=== PATIENT | female | born 1995 | race Caucasian/White ===

== ENCOUNTER 2018-08-21 16:32 | Emergency (ER) | payer OTHER ==
[2018-08-21] MEDS ORDERED: Diphtheria,Pertussis(Acell),Tetanus Vaccine 0.5 ML Syringe IM ONE (16:36)
--- NOTE | 2018-08-21 17:02 | EDM.PDOC ---
ED HPI GENERAL MEDICAL PROBLEM - General Chief Complaint: Laceration Stated Complaint: LACERATION ON FINGER Time Seen by Provider: 08/21/18 16:33 Source of Information: Reports: Patient History Limitations: Reports: No Limitations - History of Present Illness INITIAL COMMENTS - FREE TEXT/NARRATIVE: HISTORY AND PHYSICAL: History of present illness: Patient is a 23-year-old female who presents to the emergency room with complaints of a laceration to her right index finger. She states she was using a bread knife when it slipped resulting in this laceration. Her tetanus has been updated within the last 5 years. Review of systems: As per history of present illness and below otherwise all systems reviewed and negative. Past medical history: As per history of present illness and as reviewed below otherwise noncontributory. Surgical history: As per history of present illness and as reviewed below otherwise noncontributory. Social history: See social history for further information Family history: As per history of present illness and as reviewed below otherwise noncontributory. Physical exam: General: Well-developed and well-nourished 23-year-old female. Alert and oriented. Nontoxic appearing and in no acute distress. HEENT: Atraumatic, normocephalic, pupils equal and reactive bilaterally, negative for conjunctival pallor or scleral icterus, mucous membranes moist, TMs normal bilaterally, throat clear, neck supple, nontender, trachea midline. No drooling or trismus noted. No meningeal signs. No hot potato voice noted. Lungs: Clear to auscultation, breath sounds equal bilaterally, chest nontender. Heart: S1S2, regular rate and rhythm without overt murmur Abdomen: Soft, nondistended, nontender. Pelvis: Stable nontender. Genitourinary: Deferred. Rectal: Deferred. Skin: 1 cm laceration to the palmar surface of the right distal index finger. This does not involve the nailbed. Otherwise skin is intact, warm, dry. No lesions or rashes noted. Extremities: See skin for details. There is no tendon injury association with this laceration. negative for cords or calf pain. Neurovascular unremarkable. Neuro: Awake, alert, oriented. Cranial nerves II through XII unremarkable. Cerebellum unremarkable. Motor and sensory unremarkable throughout. Exam nonfocal. Notes: Area was cleansed with chlorhexidine. 1% lidocaine was used to anesthetize the area. 5-0 chromic, #3 interrupted sutures placed using sterile technique. Patient tolerated well. Nonstick dressing applied. Supportive care measures were reviewed and discussed. She voices understanding and is agreeable to plan of care. Denies any further questions or concerns at this time. Diagnostics: None Therapeutics: Lidocaine, wound care, nonstick bulky dressing Prescription: None Impression: Laceration Plan: 1. Keep the area clean and dry. Continue to monitor for signs of infection. Sutures to be removed in 7-10 days. 2. Tylenol and/or ibuprofen as needed for pain management. 3. Please follow-up with your primary care provider in the next 1-2 days. Return to the ED as needed and as discussed. Definitive disposition and diagnosis as appropriate pending reevaluation and review of above. - Related Data Allergies Allergy/AdvReac Type Severity Reaction Status Date / Time No Known Allergies Allergy Verified 08/21/18 16:43 Home Meds: Home Meds . 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 Psychiatric History: Reports: Anxiety, Depression - Infectious Disease History Infectious Disease History: Reports: None - Past Surgical History Other Female Surgeries/Procedures: One sided falopian tube removal Social & Family History - Family History Family Medical History: Noncontributory - Tobacco Use Smoking Status *Q: Current Some Day Smoker Years of Tobacco use: 1 Packs/Tins Daily: 0.1 - Recreational Drug Use Recreational Drug Use: No - Living Situation & Occupation Living situation: Reports: Single Occupation: Employed ED ROS GENERAL - Review of Systems Review Of Systems: ROS reveals no pertinent complaints other than HPI. ED EXAM, SKIN/RASH Exam: See Below (See dictation) ED SKIN PROCEDURES - Laceration/Wound Repair right index finger Lac/Wound length In cm: 1 Appearance: Subcutaneous, Linear, Clean Distal NVT: Neuro & Vascular Intact, No Tendon Injury Anesthetic Type: Local Local Anesthesia - Lidocaine (Xylocaine): 1% Plain Local Anesthetic Volume: 1cc Skin Prep: Chlorhexidine (Hibiciens), Saline Saline Irrigation (cc's): 25 Exploration/Debridement/Repair: Wound Explored, No Foreign Material Found Closed with: Sutures Suture Size: other (5-0) Suture Type: Interrupted, Simple Repaired with: Chromic Sterile Dressing Applied: Provider Tetanus Status Addressed: Yes Complications: No Course - Vital Signs Last Recorded V/S: Last Vital Signs Temp 96.9 F 08/21/18 16:44 Pulse 75 08/21/18 17:14 Resp 18 08/21/18 17:14 BP 122/59 L 08/21/18 16:44 Pulse Ox 98 08/21/18 17:14 - Orders/Labs/Meds Orders: Active Orders 24 hr Category Date Time Status Vaccines to be Administered [RC] PER UNIT ROUTINE Care 08/21/18 16:36 Active Meds: Medications Discontinued Medications Generic Name Dose Route Start Last Admin Trade Name Freq PRN Reason Stop Dose Admin Diphtheria/Tetanus/Acell Pertussis 0.5 ml 08/21/18 16:36 08/21/18 16:50 Adacel IM 08/21/18 16:37 Not Given .ONCE ONE Lidocaine HCl 5 ml 08/21/18 16:36 08/21/18 16:50 Xylocaine-Mpf 1% INJECT 08/21/18 16:37 5 ml ONETIME ONE Administration Lidocaine HCl 5 ml 08/21/18 16:49 08/21/18 16:50 Xylocaine-Mpf 1% INJECT 08/21/18 16:50 Not Given ONETIME ONE Departure - Departure Time of Disposition: 17:01 Disposition: Home, Self-Care 01 Clinical Impression: Laceration - Discharge Information Instructions: Laceration Care, Adult, [id number] Referrals: PCP,None [Primary Care Provider] - Forms: ED Department Discharge Additional Instructions: The following information is given to patients seen in the emergency department who are being discharged to home. This information is to outline your options for follow-up care. We provide all patients seen in our emergency department with a follow-up referral. The need for follow-up, as well as the timing and circumstances, are variable depending upon the specifics of your emergency department visit. If you don't have a primary care physician on staff, we will provide you with a referral. We always advise you to contact your personal physician following an emergency department visit to inform them of the circumstance of the visit and for follow-up with them and/or the need for any referrals to a consulting specialist. The emergency department will also refer you to a specialist when appropriate. This referral assures that you have the opportunity for follow-up care with a specialist. All of these measure are taken in an effort to provide you with optimal care, which includes your follow-up. Under all circumstances we always encourage you to contact your private physician who remains a resource for coordinating your care. When calling for follow-up care, please make the office aware that this follow-up is from your recent emergency room visit. If for any reason you are refused follow-up, please contact the [facility] Emergency Department at and asked to speak to the emergency department charge nurse. [facility] [address] [place] [id number] [facility] [address] [place] [id number] 1. Keep the area clean and dry. Continue to monitor for signs of infection. Sutures to be removed in 7-10 days. 2. Tylenol and/or ibuprofen as needed for pain management. 3. Please follow-up with your primary care provider in the next 1-2 days. Return to the ED as needed and as discussed. - My Orders Last 24 Hours: My Active Orders 08/21/18 16:36 Vaccines to be Administered [RC] PER UNIT ROUTINE - Assessment/Plan Last 24 Hours: My Active Orders 08/21/18 16:36 Vaccines to be Administered [RC] PER UNIT ROUTINE
== END 2018-08-21 17:14 | disposition home or self-care (01) ==
LOC: MW.ED 16:32
DX: S61.210A Laceration without foreign body of right index finger without damage to nail, initial encounter (principal); F17.210 Nicotine dependence, cigarettes, uncomplicated; Z23 Encounter for immunization; W26.0XXA Contact with knife, initial encounter
CPT/HCPCS: 12001; 90471; 99282-25; 99283

== ENCOUNTER 2018-08-30 17:37 | Emergency (ER) | payer OTHER | END 2018-08-30 17:51 | disposition left against medical advice (07) | LOC: MW.ED 17:37 | DX: Z53.21 Procedure and treatment not carried out due to patient leaving prior to being seen by health care provider (principal) ==

== ENCOUNTER 2018-10-30 10:19 | Emergency (ER) | payer SELFPAY ==
--- NOTE | 2018-10-30 10:24 | EDM.PDOC ---
ED HPI GENERAL MEDICAL PROBLEM - General Chief Complaint: Abdominal Pain Stated Complaint: stomach pain Time Seen by Provider: 10/30/18 10:22 Source of Information: Reports: Patient History Limitations: Reports: No Limitations - History of Present Illness INITIAL COMMENTS - FREE TEXT/NARRATIVE: HISTORY AND PHYSICAL: History of present illness: Patient is a 23-year-old female who presents to the emergency room with complaints of right lower quadrant pain over the past 9-10 days. She states she has had some nausea over the past 24 hours, without vomiting. She does have a history of PCOS and has had fallopian tube removed (unsure of which side). She has had moderate amount of vaginal discharge noted. Patient denies any fever, chills, headache, change in vision, syncope or near syncope. Denies any chest pain, shortness of breath or cough. Denies any vomiting, diarrhea, constipation or dysuria. Has not noted any blood in urine or stool. Patient has been eating and drinking appropriately. Last menstrual period was approximately 2-3 weeks ago, states of systems normal. Denies any chance of . Review of systems: As per history of present illness and below otherwise all systems reviewed and negative. Past medical history: As per history of present illness and as reviewed below otherwise noncontributory. Surgical history: As per history of present illness and as reviewed below otherwise noncontributory. Social history: See social history for further information Family history: As per history of present illness and as reviewed below otherwise noncontributory. Physical exam: General: Well-developed and well-nourished 23-year-old female. Alert and oriented. Nontoxic appearing and in no acute distress. HEENT: Atraumatic, normocephalic, pupils equal and reactive bilaterally, negative for conjunctival pallor or scleral icterus, mucous membranes moist, TMs normal bilaterally, throat clear, neck supple, nontender, trachea midline. No drooling or trismus noted. No meningeal signs. No hot potato voice noted. Lungs: Clear to auscultation, breath sounds equal bilaterally, chest nontender. Heart: S1S2, regular rate and rhythm without overt murmur Abdomen: Soft, nondistended, RLQ tenderness (no rebound tenderness). Negative for masses or hepatosplenomegaly. Negative for costovertebral tenderness. Pelvis: Stable nontender. Genitourinary: Declined Rectal: Deferred. Skin: Intact, warm, dry. No lesions or rashes noted. Extremities: Atraumatic, moves all per self, negative for cords or calf pain. Neurovascular unremarkable. Neuro: Awake, alert, oriented. Cranial nerves II through XII unremarkable. Cerebellum unremarkable. Motor and sensory unremarkable throughout. Exam nonfocal. Notes: Patient declined pelvic exam and STD screening/[place]. Lab work does show a UTI. Ultrasound shows no acute findings. Appendix is normal. Gallbladder is normal without any gallstones. Transvaginal pelvic ultrasound is within normal limits. We'll treat the UTI with Pyridium and Macrobid. Supportive care measures were reviewed and discussed. Voices understanding and is agreeable to plan of care. Denies any further questions or concerns at this time. Diagnostics: CBC, CMP, UA, HCGU, Abd/Pelvic Ultrasound Therapeutics: IV fluids, Zofran, Toradol Prescription: Macrobid, Pyridium Impression: UTI Right sided abdominal pain Plan: 1. Increase your oral fluids. Take your medications as directed. 2. Tylenol and/or ibuprofen as needed for pain management. 3. Follow-up with your primary care provider as we discussed. Return to the ED as needed and as discussed. Definitive disposition and diagnosis as appropriate pending reevaluation and review of above. RLQ Pain Score (Numeric/FACES): 7 - Related Data Allergies Allergy/AdvReac Type Severity Reaction Status Date / Time No Known Allergies Allergy Verified 10/30/18 10:40 Home Meds: Home Meds . 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 ED EXAM, GI/ABD - Physical Exam Exam: See Below (See dictation) Course - Vital Signs Last Recorded V/S: Last Vital Signs Temp 97.9 F 10/30/18 11:18 Pulse 86 10/30/18 11:18 Resp 16 10/30/18 11:18 BP 123/74 10/30/18 11:18 Pulse Ox 98 10/30/18 11:18 - Orders/Labs/Meds Orders: Active Orders 24 hr Category Date Time Status CHLAMYDIA AND GONORRHEA BY TMA Stat Lab 10/30/18 11:11 Stop Req CULTURE URINE [RM] Stat Lab 10/30/18 11:11 Received TRICH/LINDSAY/CAND BY DNA PROBE [MOLEC] Stat Lab 10/30/18 11:11 Stop Req Labs: Laboratory Tests 10/30/18 10/30/18 10/30/18 Range/Units 11:11 11:11 11:11 WBC 8.56 (4.0-11.0) K/uL RBC 4.69 (4.30-5.90) M/uL Hgb 14.8 (12.0-16.0) g/dL Hct 41.3 (36.0-46.0) % MCV 88.1 (80.0-98.0) fL MCH 31.6 (27.0-32.0) pg MCHC 35.8 (31.0-37.0) g/dL RDW Std Deviation 37.8 (28.0-62.0) fl RDW Coeff of Marko 12 (11.0-15.0) % Plt Count 280 (150-400) K/uL MPV 9.20 (7.40-12.00) fL Neut % (Auto) 74.7 (48.0-80.0) % Lymph % (Auto) 19.5 (16.0-40.0) % Tucker % (Auto) 4.8 (0.0-15.0) % Eos % (Auto) 0.9 (0.0-7.0) % Baso % (Auto) 0.1 (0.0-1.5) % Neut # (Auto) 6.4 H (1.4-5.7) K/uL Lymph # (Auto) 1.7 (0.6-2.4) K/uL Tucker # (Auto) 0.4 (0.0-0.8) K/uL Eos # (Auto) 0.1 (0.0-0.7) K/uL Baso # (Auto) 0.0 (0.0-0.1) K/uL Nucleated RBC % 0.0 /100WBC Nucleated RBCs # 0 K/uL Sodium 141 (136-145) mmol/L Potassium 3.2 L (3.5-5.1) mmol/L Chloride 104 (98-107) mmol/L Carbon Dioxide 20.9 L (21.0-32.0) mmol/L BUN 14 (7.0-18.0) mg/dL Creatinine 0.6 (0.6-1.0) mg/dL Est Cr Clr Drug Dosing 121.66 mL/min Estimated GFR (MDRD) > 60.0 ml/min Glucose 91 (74-106) mg/dL Calcium 9.7 (8.5-10.1) mg/dL Total Bilirubin 0.5 (0.2-1.0) mg/dL AST 18 (15-37) IU/L ALT 24 (14-63) IU/L Alkaline Phosphatase 61 (46-116) U/L Total Protein 8.9 H (6.4-8.2) g/dL Albumin 4.6 (3.4-5.0) g/dL Globulin 4.3 H (2.6-4.0) g/dL Albumin/Globulin Ratio 1.1 (0.9-1.6) Urine Color YELLOW Urine Appearance SLT CLOUDY Urine pH 5.5 (5.0-8.0) Ur Specific [place] 1.015 (1.001-1.035) Urine Protein 30 H (NEGATIVE) mg/dL Urine Glucose (UA) NEGATIVE (NEGATIVE) mg/dL Urine Ketones TRACE H (NEGATIVE) mg/dL Urine Occult Blood MODERATE H (NEGATIVE) Urine Nitrite POSITIVE H (NEGATIVE) Urine Bilirubin NEGATIVE (NEGATIVE) Urine Urobilinogen 0.2 (<2.0) EU/dL Ur Leukocyte Esterase SMALL H (NEGATIVE) Urine RBC 8-10 (0-2/HPF) Urine WBC 5-8 (0-5/HPF) Ur Epithelial Cells OCCASIONAL (NONE-FEW) Urine Bacteria 1+ H (NEGATIVE) Urine HCG, Qual (NEGATIVE) 10/30/18 Range/Units 11:13 WBC (4.0-11.0) K/uL RBC (4.30-5.90) M/uL Hgb (12.0-16.0) g/dL Hct (36.0-46.0) % MCV (80.0-98.0) fL MCH (27.0-32.0) pg MCHC (31.0-37.0) g/dL RDW Std Deviation (28.0-62.0) fl RDW Coeff of Marko (11.0-15.0) % Plt Count (150-400) K/uL MPV (7.40-12.00) fL Neut % (Auto) (48.0-80.0) % Lymph % (Auto) (16.0-40.0) % Tucker % (Auto) (0.0-15.0) % Eos % (Auto) (0.0-7.0) % Baso % (Auto) (0.0-1.5) % Neut # (Auto) (1.4-5.7) K/uL Lymph # (Auto) (0.6-2.4) K/uL Tucker # (Auto) (0.0-0.8) K/uL Eos # (Auto) (0.0-0.7) K/uL Baso # (Auto) (0.0-0.1) K/uL Nucleated RBC % /100WBC Nucleated RBCs # K/uL Sodium (136-145) mmol/L Potassium (3.5-5.1) mmol/L Chloride (98-107) mmol/L Carbon Dioxide (21.0-32.0) mmol/L BUN (7.0-18.0) mg/dL Creatinine (0.6-1.0) mg/dL Est Cr Clr Drug Dosing mL/min Estimated GFR (MDRD) ml/min Glucose (74-106) mg/dL Calcium (8.5-10.1) mg/dL Total Bilirubin (0.2-1.0) mg/dL AST (15-37) IU/L ALT (14-63) IU/L Alkaline Phosphatase (46-116) U/L Total Protein (6.4-8.2) g/dL Albumin (3.4-5.0) g/dL Globulin (2.6-4.0) g/dL Albumin/Globulin Ratio (0.9-1.6) Urine Color Urine Appearance Urine pH (5.0-8.0) Ur Specific [place] (1.001-1.035) Urine Protein (NEGATIVE) mg/dL Urine Glucose (UA) (NEGATIVE) mg/dL Urine Ketones (NEGATIVE) mg/dL Urine Occult Blood (NEGATIVE) Urine Nitrite (NEGATIVE) Urine Bilirubin (NEGATIVE) Urine Urobilinogen (<2.0) EU/dL Ur Leukocyte Esterase (NEGATIVE) Urine RBC (0-2/HPF) Urine WBC (0-5/HPF) Ur Epithelial Cells (NONE-FEW) Urine Bacteria (NEGATIVE) Urine HCG, Qual NEGATIVE (NEGATIVE) Meds: Medications Discontinued Medications Generic Name Dose Route Start Last Admin Trade Name Freq PRN Reason Stop Dose Admin Sodium Chloride 1,000 mls @ 999 mls/hr 10/30/18 10:44 10/30/18 11:15 Normal Saline IV 10/30/18 11:44 999 mls/hr STAT ONE Administration Ketorolac Tromethamine 30 mg 10/30/18 10:46 10/30/18 11:15 Toradol IVPUSH 10/30/18 10:47 30 mg ONETIME ONE Administration Ondansetron HCl 4 mg 10/30/18 10:46 10/30/18 11:15 Zofran IVPUSH 10/30/18 10:47 4 mg ONETIME ONE Administration Departure - Departure Time of Disposition: 13:09 Disposition: Home, Self-Care 01 Clinical Impression: Right lower quadrant abdominal pain UTI (urinary tract infection) Qualifiers: Urinary tract infection type: site unspecified Hematuria presence: with hematuria Qualified Code(s): N39.0 - Urinary tract infection, site not specified ; R31.9 - Hematuria, unspecified - Discharge Information Instructions: Urinary Tract Infection, Adult, [id number], Abdominal Pain, Adult Referrals: PCP,None [Primary Care Provider] - Forms: ED Department Discharge Additional Instructions: The following information is given to patients seen in the emergency department who are being discharged to home. This information is to outline your options for follow-up care. We provide all patients seen in our emergency department with a follow-up referral. The need for follow-up, as well as the timing and circumstances, are variable depending upon the specifics of your emergency department visit. If you don't have a primary care physician on staff, we will provide you with a referral. We always advise you to contact your personal physician following an emergency department visit to inform them of the circumstance of the visit and for follow-up with them and/or the need for any referrals to a consulting specialist. The emergency department will also refer you to a specialist when appropriate. This referral assures that you have the opportunity for follow-up care with a specialist. All of these measure are taken in an effort to provide you with optimal care, which includes your follow-up. Under all circumstances we always encourage you to contact your private physician who remains a resource for coordinating your care. When calling for follow-up care, please make the office aware that this follow-up is from your recent emergency room visit. If for any reason you are refused follow-up, please contact the [facility] Emergency Department at and asked to speak to the emergency department charge nurse. [facility] [address] [place] [address] [id number] [address] [address] 1. Increase your oral fluids. Take your medications as directed. 2. Tylenol and/or ibuprofen as needed for pain management. 3. Follow-up with your primary care provider as we discussed. Return to the ED as needed and as discussed. - My Orders Last 24 Hours: My Active Orders 10/30/18 11:11 CHLAMYDIA AND GONORRHEA BY TMA Stat CULTURE URINE [RM] Stat TRICH/LINDSAY/CAND BY DNA PROBE [MOLEC] Stat - Assessment/Plan Last 24 Hours: My Active Orders 10/30/18 11:11 CHLAMYDIA AND GONORRHEA BY TMA Stat CULTURE URINE [RM] Stat TRICH/LINDSAY/CAND BY DNA PROBE [MOLEC] Stat
[2018-10-30] MEDS ORDERED: Sodium Chloride 0.9% 1,000 ML IV ONE (10:44)
[2018-10-30] MEDS ORDERED: Ondansetron 4 MG/2 ML SDV IVPUSH ONE (10:46)
[2018-10-30] MEDS ORDERED: Ketorolac 30 MG/ML SDV IVPUSH ONE (10:46)
[2018-10-30 12:01] LABS: CHLORIDE,CL 104 mmol/L (98-107); SODIUM,NA 141 mmol/L (136-145)
--- NOTE | 2018-10-30 12:51 | US ---
EXAMINATION: Limited transabdominal ultrasound HISTORY: Pain COMPARISON: None TECHNIQUE: Grayscale and color Doppler imaging obtained of the right aspect of the abdomen. FINDINGS: The appendix has not characterize. No free fluid noted within the right lower quadrant. Visualized pancreas and liver appear normal. The hepatic echotexture is normal. The right kidney measures at least 11.7 cm [id number] without evidence hydronephrosis. The gallbladder wall thickness is normal. No pericholecystic fluid or shadowing gallstones. The common bile duct measures 3 mm. Sonographic Jewell sign is negative. IMPRESSION: 1. No acute findings noted within the right aspect of the abdomen.
--- NOTE | 2018-10-30 12:53 | US ---
EXAMINATION: Transabdominal and transvaginal pelvic ultrasound HISTORY: Pain COMPARISON: None TECHNIQUE: Grayscale, color Doppler, and spectral Doppler imaging obtained. FINDINGS: The uterus is normal in size, contour, echogenicity without a focal mass. Endometrial stripe thickness is normal at 7 mm. No significant free pelvic fluid. Both the left and right ovaries are normal in size, contour, and echogenicity demonstrating normal color and spectral Doppler flow. Small follicles bilaterally. No adnexal masses. IMPRESSION: 1. Unremarkable pelvic ultrasound.
== END 2018-10-30 13:25 | disposition home or self-care (01) ==
LOC: MW.ED 10:19
DX: N39.0 Urinary tract infection, site not specified (principal)
CPT/HCPCS: 36415; 76705; 76830; 80053; 81001; 81025; 85025; 87086; 87088; 87186; 96361; 96374; 96375; 99284; J1885; J2405; J7040

== ENCOUNTER 2020-07-31 09:51 | Emergency (ER) | payer OTHER ==
--- NOTE | 2020-07-31 10:17 | EDM.PDOC ---
ED HPI GENERAL MEDICAL PROBLEM - General Chief Complaint: Upper Extremity Injury/Pain Stated Complaint: POSSIBLE L/ BROKEN HAND Time Seen by Provider: 07/31/20 10:06 Source of Information: Reports: Patient History Limitations: Reports: No Limitations - History of Present Illness INITIAL COMMENTS - FREE TEXT/NARRATIVE: HISTORY AND PHYSICAL: History of present illness: Patient is a 24-year-old female who presents emergency room today with concern of left hand/wrist injury that occurred approximately 2 hours prior before coming to the emergency room. 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 Patient states the lever dropped and landed on her left wrist/hand. Patient states that she has been able to move her wrist but does have some pain with movement. Patient states that she was instructed by work to come and be evaluated due to the incident. Patient denies any other symptoms or concerns. Patient denies fever, chills, chest pain, shortness of breath, or cough. Denies headache, neck stiff ness, change in vision, syncope, or near syncope. Denies nausea, vomiting, abdominal pain, diarrhea, constipation, or dysuria. Has not noted any blood in urine or stool. Patient has been eating and drinking appropriately. Review of systems: As per history of present illness and below otherwise all systems reviewed and negative. Past medical history: As per history of present illness and as reviewed below otherwise noncontributory. Surgical history: As per history of present illness and as reviewed below otherwise noncontributory. Social history: See social history for further information Family history: As per history of present illness and as reviewed below otherwise noncontributor y. Physical exam: General: Patient is alert, oriented, and in no acute distress. Patient sitting comfortably on exam table. Vitals stable and reviewed by me. HEENT: Atraumatic, normocephalic, pupils equal and reactive bilaterally, negative for conjunctival pallor or scleral icterus, mucous membranes moist, TMs normal bilaterally, throat clear, neck supple, nontender, trachea midline. No drooling or trismus noted. No meningeal signs. No hot potato voice noted. Lungs: Clear to auscultation, breath sounds equal bilaterally, chest nontender. Heart: S1S2, regular rate and rhythm without overt murmur Abdomen: Soft, nondistended, nontender. Negative for masses or hepatosplenomegaly. Negative for costovertebral tenderness. Pelvis: Stable nontender. Genitourinary: Deferred. Rectal: Deferred. Skin: Intact, warm, dry. No lesions or rashes noted. Extremities: She has full range of motion of the complete left upper extremity without pain or difficulty. Negative scaphoid tenderness. Patient points to the distal ulnar area with stated pain but no pain to palpation of this area. Radial pulses grossly intact of the left upper extremity with capillary refill less than 2 seconds. Otherwise, atraumatic, negative for cords or calf pain. Neurovascular unremarkable. Neuro: Awake, alert, oriented. Cranial nerves II through XII unremarkable. Cerebellum unremarkable. Motor and sensory unremarkable throughout. Exam nonfocal. Notes: Signs and symptoms that would prompt return to the ED thoroughly discussed with patient. Discussed importance for follow-up with a primary care provider. Voices understanding and is agreeable to plan of care. Denies any further questions or concerns at this time. Diagnostics: Hand/wrist XR Therapeutics: MAYELA wrap Prescription: None Impression: Left wrist injury Plan: 1. Rest, ice, elevate the affected extremity. You can apply ice 15 minutes on, 15 minutes off. 2. Tylenol and/or Ibuprofen as directed for pain management or discomfort. 3. Follow up with the primary care provider as discussed. Return to the ED as needed and as discussed. Definitive disposition and diagnosis as appropriate pending reevaluation and review of above. left wrist Pain Score (Numeric/FACES): 4 - Related Data Allergies Allergy/AdvReac Type Severity Reaction Status Date / Time No Known Allergies Allergy Verified 07/31/20 10:09 Home Meds: Home Meds . 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 Psychiatric History: Reports: Anxiety, Depression - Infectious Disease History Infectious Disease History: Reports: None - Past Surgical History Other Female Surgeries/Procedures: One sided falopian tube removal Social & Family History - Family History Family Medical History: No Pertinent Family History - Caffeine Use Caffeine Use: Reports: Energy Drinks - Recreational Drug Use Recreational Drug Use: No - Living Situation & Occupation Living situation: Reports: Single Occupation: Employed Review of Systems - Review of Systems Review Of Systems: Comprehensive ROS is negative, except as noted in HPI. ED EXAM, GENERAL - Physical Exam Exam: See Below (see dictation) Course - Vital Signs Last Recorded V/S: Last Vital Signs Temp 96.8 F L 07/31/20 10:05 Pulse 92 07/31/20 10:05 Resp 16 07/31/20 10:05 BP 127/74 07/31/20 10:05 Pulse Ox 98 07/31/20 10:05 Departure - Departure Time of Disposition: 10:53 Disposition: Home, Self-Care 01 Clinical Impression: Left wrist injury Qualifiers: Encounter type: initial encounter Qualified Code(s): S69.92XA - Unspecified injury of left wrist, hand and finger(s), initial encounter - Discharge Information Referrals: PCP,None [Primary Care Provider] - Forms: ED Department Discharge Additional Instructions: The following information is given to patients seen in the emergency department who are being discharged to home. This information is to outline your options for follow-up care. We provide all patients seen in our emergency department with a follow-up referral. The need for follow-up, as well as the timing and circumstances, are variable depending upon the specifics of your emergency department visit. If you don't have a primary care physician on staff, we will provide you with a referral. We always advise you to contact your personal physician following an emergency department visit to inform them of the circumstance of the visit and for follow-up with them and/or the need for any referrals to a consulting specialist. The emergency department will also refer you to a specialist when appropriate. This referral assures that you have the opportunity for follow-up care with a specialist. All of these measure are taken in an effort to provide you with optimal care, which includes your follow-up. Under all circumstances we always encourage you to contact your private physician who remains a resource for coordinating your care. When calling for follow-up care, please make the office aware that this follow-up is from your recent emergency room visit. If for any reason you are refused follow-up, please contact the [facility] Emergency Department at and asked to speak to the emergency department charge nurse. [facility] [address] [place] [id number] [facility] [address] [place] [id number] 1. Rest, ice, elevate the affected extremity. You can apply ice 15 minutes on, 15 minutes off. 2. Tylenol and/or Ibuprofen as directed for pain management or discomfort. 3. Follow up with the primary care provider as discussed. Return to the ED as needed and as discussed. Sepsis Event Note (ED) - Evaluation Sepsis Screening Result: No Definite Risk - Focused Exam Vital Signs: Vital Signs Temp Pulse Resp BP Pulse Ox 07/31/20 10:05 96.8 F L 92 16 127/74 98
--- NOTE | 2020-07-31 10:47 | CR ---
Indication: Pain Technique: Examination consists of three views of the left hand. Two additional views were required to complete the left wrist examination. Comparison: There are no prior studies for comparison Findings: Bone mineral density appears normal. There is no lytic or blastic lesion, fracture or dislocation identified. No arthritic change. No gas within soft tissue, radiopaque foreign body or erosive change. No abnormal soft tissue calcification Impression: Normal plain film examination of the left hand and of the left wrist Dictated by Zack Vargas MD @ Jul 31 2020 10:43AM Signed by Dr. Zack Vargas @ Jul 31 2020 10:46AM
== END 2020-07-31 11:06 | disposition home or self-care (01) ==
LOC: MW.ED 09:51
DX: S69.92XA Unspecified injury of left wrist, hand and finger(s), initial encounter (principal); W20.8XXA Other cause of strike by thrown, projected or falling object, initial encounter; Y99.0 Civilian activity done for income or pay
CPT/HCPCS: 73100-26-LT; 73100-LT; 73130-26-LT; 73130-LT; 99283; 99283-25